=== PATIENT | male | born 1940 | race Caucasian/White ===

== ENCOUNTER 2016-12-14 | Outpatient (CLI) | payer MEDICARE, OTHER | END 2016-12-14 11:20 | disposition critical access hospital (66) | CPT/HCPCS: A0425; A0427 ==

== ENCOUNTER 2016-12-14 | Outpatient (CLI) | payer MEDICARE, OTHER | END 2016-12-14 23:59 | disposition short-term general hospital (02) | DX: I21.3 ST elevation (STEMI) myocardial infarction of unspecified site (principal) | CPT/HCPCS: A0425; A0426 ==

== ENCOUNTER 2016-12-14 11:36 | Emergency (ER) | payer MEDICARE, OTHER ==
[2016-12-14] MEDS ORDERED: ONDANSETRON 4 MG/2 ML VIAL ONE (11:41)
[2016-12-14] MEDS ORDERED: MORPHINE 2 MG/ML SYRINGE IVP STA (11:46)
[2016-12-14] MEDS ORDERED: ONDANSETRON 4 MG/2 ML VIAL IVP STA (11:46)
[2016-12-14] MEDS ORDERED: SODIUM CHLORIDE 0.9% 1,000 ML IV ONE (11:46)
[2016-12-14] MEDS ORDERED: MORPHINE 2 MG/ML SYRINGE ONE (12:05)
[2016-12-14] MEDS ORDERED: PROMETHAZINE 25 MG/1 ML VIAL ONE (12:39)
[2016-12-14] MEDS ORDERED: PROMETHAZINE INJ 25 MG in SODIUM CHLORIDE 0.9% 50 ML IV STA (12:41)
[2016-12-14] MEDS ORDERED: IOPAMIDOL-300 100 ML VIAL IVP ONE (12:43)
[2016-12-14] MEDS ORDERED: ASPIRIN CHEW 81 MG TABLET PO STA (12:46)
[2016-12-14] MEDS ORDERED: HEPARIN 25,000 UNITS/500 ML 500 ML IV STA (12:46)
[2016-12-14] MEDS ORDERED: HEPARIN 5,000 UNIT/ML VIAL IVP ONE (12:46)
[2016-12-14] MEDS ORDERED: HEPARIN 25,000 UNITS/500 ML 500 ML IV ONE (12:48)
[2016-12-14] MEDS ORDERED: HEPARIN 5,000 UNIT/ML VIAL ONE ×2 (12:48→12:49)
[2016-12-14] MEDS ORDERED: ASPIRIN CHEW 81 MG TABLET ONE (12:49)
== END 2016-12-14 12:55 | disposition short-term general hospital (02) ==
DX: I21.29 ST elevation (STEMI) myocardial infarction involving other sites (principal); R55 Syncope and collapse; I95.9 Hypotension, unspecified; R11.10 Vomiting, unspecified; R51 Headache; M54.2 Cervicalgia; V47.5XXA Car driver injured in collision with fixed or stationary object in traffic accident, initial encounter; I25.10 Atherosclerotic heart disease of native coronary artery without angina pectoris; E78.00 Pure hypercholesterolemia, unspecified; I48.91 Unspecified atrial fibrillation; Z79.01 Long term (current) use of anticoagulants; Z79.82 Long term (current) use of aspirin; F17.200 Nicotine dependence, unspecified, uncomplicated
CPT/HCPCS: 36415; 70450; 71275; 72125; 74174; 80053; 80320; 83605; 83690; 84484; 85025; 85610; 87040; 93005; 93010; 96365; 96375; 99284; A9270; Q9967

== ENCOUNTER 2016-12-23 08:00 | Outpatient (CLI) | payer MEDICARE, OTHER | END 2016-12-23 08:01 | disposition home or self-care (01) | DX: I48.91 Unspecified atrial fibrillation (principal) ==

== ENCOUNTER 2016-12-25 08:00 | Outpatient (CLI) | payer MEDICARE, OTHER | END 2016-12-25 08:01 | disposition home or self-care (01) | LOC: LAB.N 08:00 | PROVIDERS: ATTEND Family Medicine | DX: I48.91 Unspecified atrial fibrillation (principal) | CPT/HCPCS: 85610 ==

== ENCOUNTER 2016-12-26 08:00 | Outpatient (CLI) | payer MEDICARE, OTHER | END 2016-12-26 08:01 | disposition home or self-care (01) | DX: I48.91 Unspecified atrial fibrillation (principal) ==

== ENCOUNTER 2016-12-29 11:09 | Outpatient (CLI) | payer MEDICARE, OTHER | END 2016-12-29 11:10 | disposition home or self-care (01) | DX: I49.1 Atrial premature depolarization (principal); I48.91 Unspecified atrial fibrillation ==

== ENCOUNTER 2016-12-30 12:09 | Outpatient (CLI) | payer MEDICARE, OTHER | END 2016-12-30 12:10 | disposition home or self-care (01) | DX: I48.91 Unspecified atrial fibrillation (principal) ==

== ENCOUNTER 2017-01-02 | Outpatient (CLI) | payer MEDICARE, OTHER | END 2017-01-02 10:15 | disposition short-term general hospital (02) | CPT/HCPCS: A0425; A0427 ==

== ENCOUNTER 2017-01-05 09:32 | Outpatient (CLI) | payer MEDICARE, OTHER | END 2017-01-05 09:33 | disposition home or self-care (01) | DX: I48.91 Unspecified atrial fibrillation (principal) ==

== ENCOUNTER 2017-01-08 15:42 | Outpatient (CLI) | payer MEDICARE, OTHER | END 2017-01-08 15:43 | disposition home or self-care (01) | DX: I48.91 Unspecified atrial fibrillation (principal) ==

== ENCOUNTER 2017-01-28 13:25 | Outpatient (CLI) | payer MEDICARE, OTHER | END 2017-01-28 13:26 | DX: I48.91 Unspecified atrial fibrillation (principal) ==

== ENCOUNTER 2017-02-06 08:00 | Outpatient (CLI) | payer MEDICARE, OTHER | END 2017-02-06 23:59 | DX: I25.810 Atherosclerosis of coronary artery bypass graft(s) without angina pectoris (principal); Z95.1 Presence of aortocoronary bypass graft ==

== ENCOUNTER 2017-02-23 08:33 | Outpatient (CLI) | payer MEDICARE, OTHER | END 2017-02-23 08:34 | disposition home or self-care (01) | DX: I48.91 Unspecified atrial fibrillation (principal) ==

== ENCOUNTER 2017-03-02 08:39 | Outpatient (CLI) | payer MEDICARE, OTHER | END 2017-03-02 08:40 | disposition home or self-care (01) | DX: I48.91 Unspecified atrial fibrillation (principal) ==

== ENCOUNTER 2017-03-11 10:39 | Outpatient (CLI) | payer MEDICARE, OTHER | END 2017-03-11 10:40 | disposition home or self-care (01) | DX: I48.91 Unspecified atrial fibrillation (principal) ==

== ENCOUNTER 2017-03-20 09:37 | Emergency (ER) | payer MEDICARE, OTHER ==
--- NOTE | 2017-03-20 09:52 | ED Physician Documentation ---
History of Present Illness - Stated complaint Stated Complaint: LOW BP - Chief complaint Chief Complaint: Cardiac - Additonal information Additional information: hx from pt 76 male CAD s/p [place] CABG this year also a fib on coumadin and 40 some yr ago he had a vagal nerve clipping for abd pain and since then he has had a syndrome where his HR and BP drop after eating most recently seen by cardio for these sx a month ago and states nothing can be dine, PPM was not suggested today was at cardiac rehab - arrived feeling fine, was doing his exercises, became faint, HR 40 SBP approx 50 he is starting to feel better now also notes recent chest discomfort and soa X 3 days no fever or couch LLE swelling since vein harvesting for CABG Review of Systems Constitutional: denies: Fever, Chills Cardiac: reports: Chest pain / pressure Respiratory: reports: Dyspnea GI: denies: Abdominal Pain, Nausea, Vomiting Musculoskeletal: reports: Extremity swelling Neurologic: reports: Generalized weakness. denies: Focal weakness, Numbness Endocrine: reports: Easy bruising / bleeding Immunocompromised: denies: Immunocompromised PD PAST MEDICAL HISTORY - Past Medical History Cardiovascular: High cholesterol, Coronary artery disease, Atrial fibrillation Respiratory: None Neuro: None Endocrine/Autoimmune: None GI: GERD : None HEENT: Chronic vision loss, Glaucoma Psych: Anxiety Musculoskeletal: Osteoarthritis Derm: None - Past Surgical History General: Cholecystectomy, Hiatal hernia repair, Other Ortho: Knee replacement Cardiovascular: Coronary stent HEENT: Cataracts - Present Medications Home Medications: Ambulatory Orders Medication Instructions Recorded Confirmed Diphenoxylate HCl/Atropine 2.5 each PO 3-4XD 12/14/13 12/12/15 [Diphenoxylate-Atropine Tablet] Nitroglycerin [Nitrostat] 0.4 mg SL Q5MIN PRN 12/14/13 12/12/15 carBAMazepine [TEGretol] 200 mg PO BID 12/14/13 12/14/16 Albuterol Sulfate [Proventil Hfa] 60 puffs IH DAILY 11/21/15 12/12/15 Aspirin [Aspir-Low] 81 mg PO DAILY 11/21/15 12/14/16 Fluoxetine HCl [Prozac] 20 mg PO DAILY 11/21/15 12/12/15 Fluticasone [Flonase] 50 mcg INH DAILY 11/21/15 12/12/15 Hydrocodone/Acetaminophen [[place] 1 each PO DAILY PRN 11/21/15 12/14/16 5-325 Tablet] Lisinopril 20 mg PO DAILY 11/21/15 12/14/16 Omeprazole 40 mg PO DAILY 11/21/15 12/14/16 Tamsulosin HCl [Flomax] 0.4 mg PO DAILY 11/21/15 12/14/16 Warfarin [Coumadin] 5 mg PO 1400 12/11/15 12/14/16 Furosemide [Lasix] 40 mg PO DAILY #7 tablet 03/20/17 - Allergies Allergies/Adverse Reactions: Allergies Allergy/AdvReac Type Severity Reaction Status Date / Time proparacaine Allergy Intermediate Edema Verified 12/12/15 10:06 brimonidine tartrate * Allergy Unknown Unknown Verified 12/12/15 10:07 [From Alphagan P] - Social History Does the pt smoke?: No Smoking Status: Current every day smoker Does the pt drink ETOH?: No Does the pt have substance abuse?: No - POLST Patient has POLST: No PD ED PE NORMAL - Vitals Vital signs reviewed: Yes - Neck Neck: Supple, no meningeal sign - Cardiac Cardiac: RRR - Respiratory Respiratory: No respiratory distress, Other (basilar crackles) - Abdomen Abdomen: Soft, Non tender - Extremities Extremities: Other (mild edema LLE non tender) - Neuro Neuro: Alert and oriented X 3, No motor deficit Results - Vitals Vitals: Vital Signs - 24 hr 03/20/17 03/20/17 03/20/17 09:44 09:48 10:45 Temperature Heart Rate 52 L 53 L 53 L Respiratory 18 16 17 Rate Blood Pressure 90/48 L 111/53 L 127/59 L O2 Saturation 96 92 94 03/20/17 12:44 Temperature 36.8 C Heart Rate 66 Respiratory 18 Rate Blood Pressure 144/71 H O2 Saturation 97 Oxygen O2 Source Room air - EKG (time done) 0945 Rate: Rate (enter#) (42) Rhythm: Atrial fibrillation Intervals: No: Normal ME Ischemia: Normal ST segments - Labs Labs: Laboratory Tests 03/20/17 03/20/17 03/20/17 09:55 09:55 09:55 WBC 6.9 RBC 4.13 L Hgb 11.9 L Hct 35.2 L MCV 85.3 MCH 28.8 MCHC 33.8 RDW 15.5 H Plt Count 221 MPV 7.6 Neut # 4.3 Lymph # 1.8 [place] # 0.7 Eos # 0.1 Baso # 0.0 Absolute Nucleated RBC 0.00 Nucleated RBCs 0.0 PT INR Sodium 134 L Potassium 4.0 Chloride 102 Carbon Dioxide 24 Anion Gap 8.0 BUN 11 Creatinine 1.1 Estimated GFR (MDRD) 65 L Glucose 106 H Calcium 8.8 Troponin I < 0.04 B-Natriuretic Peptide 03/20/17 03/20/17 09:55 09:55 WBC RBC Hgb Hct MCV MCH MCHC RDW Plt Count MPV Neut # Lymph # [place] # Eos # Baso # Absolute Nucleated RBC Nucleated RBCs PT 16.4 H INR 1.5 H Sodium Potassium Chloride Carbon Dioxide Anion Gap BUN Creatinine Estimated GFR (MDRD) Glucose Calcium Troponin I B-Natriuretic Peptide 583 H - Rads (name of study) CXR Radiology: See rad report (cardiomegaly mild CHF) doppler Radiology: See rad report (no DVT) PD MEDICAL DECISION MAKING - ED course ED course: low LAURA and HR improved - per pt and long hx of same due to vagal nerve surgery, worked up many times and no tx is available a fib not new - on coumadin also CP and soa for few days EKG no acute and trop neg midl CHF on CXR and mild elev BNP, thinks this is baseline but not sure, not on lasix now though has been before offered transfer to [facility] where his cardio Dr Madison is for diuresis echo etc but they decline - he just had an echo last week and he has fup next week and not having CP or SOA now wants to be dced Departure - Departure Disposition: 01 Home, Self Care Clinical Impression: Bradycardia Congestive heart failure Qualifiers: Congestive heart failure type: systolic Congestive heart failure chronicity: unspecified congestive heart failure chronicity Qualified Code(s): I50.20 - Unspecified systolic (congestive) heart failure Condition: Good Instructions: ED CHF General Prescriptions: Furosemide [Lasix] 40 mg PO DAILY #7 tablet Comments: By your report the slow heart rate and low blood pressure are a recurrent problem after your vagus nerve ligation and cannot be cured. The heart rate and blood pressure are better now You have had some chest pressure and shortness of air for a few days too. The EKG and blood work do not suggest another heart attack But you do have some fluid in your lungs - some congestive heart failure - we are not sure if this is new. We discussed being transferred back over to [facility] to get diuretics and have more tests run on your heart. But you just had an echocardiogram last week and have another appointment next week and you want to go home. So I have written a prescription for a diuretic for you to take over the weekend. please follow up with your PMD for a recheck Thursday And see your supply chain vice president as scheduled Also your coumadin level was a little low at 1.5. Please get that rechecked Thursday as well
[2017-03-20 10:38] LABS: BASOPHILS % (AUTO) 0.6 %; EOSINOPHILS # (AUTO) 0.1 10^3/uL (0.0-0.7); EOSINOPHILS % (AUTO) 0.9 %; HCT - HEMATOCRIT 35.2 % (42.0-52.0); HGB - HEMOGLOBIN 11.9 g/dL (14.0-18.0); LYMPHOCYTES # (AUTO) 1.8 10^3/uL (1.5-3.5); LYMPHOCYTES % (AUTO) 26.1 %; MEAN CORPUSCULAR HEMOGLOBIN 28.8 pg (27.0-31.0); MEAN CORPUSCULAR HGB CONC 33.8 g/dL (32.0-36.0); MEAN CORPUSCULAR VOLUME 85.3 fL (80.0-94.0); MEAN PLATELET VOLUME 7.6 fL (7.4-11.4); MONOCYTES # (AUTO) 0.7 10^3/uL (0.0-1.0); MONOCYTES % (AUTO) 9.8 %; NEUTROPHILS # (AUTO) 4.3 10^3/uL (1.5-6.6); NEUTROPHILS % (AUTO) 62.6 %; RED BLOOD COUNT 4.13 10^6/uL (4.70-6.10); RED CELL DISTRIBUTION WIDTH 15.5 % (12.0-15.0); UNCORRECTED WHITE BLOOD COUNT 6.9 x10^3/uL; WHITE BLOOD COUNT 6.9 x10^3/uL (4.8-10.8)
--- NOTE | 2017-03-20 10:45 | XRAY Preliminary Report ---
Exam: XR Chest 1 View IMPRESSION: 1. Some interstitial edema, cardiomegaly, early congestive heart failure. [facility] SITE ID: [id number]
[2017-03-20 10:49] LABS: CALCIUM 8.8 mg/dL (8.5-10.3); CREATININE 1.1 mg/dL (0.6-1.2)
--- NOTE | 2017-03-20 10:51 | XRAY Report ---
EXAM: CHEST RADIOGRAPHY EXAM DATE: 03/20/2017 10:39 AM. CLINICAL HISTORY: Short of breath. COMPARISON: None. TECHNIQUE: 1 view. FINDINGS: Lungs/Pleura: Abnormal vascular redistribution and interstitial prominence. Mediastinum: Cardiomegaly. Previous CABG changes. Other: None. IMPRESSION: Some interstitial edema, cardiomegaly, early congestive heart failure. [facility] Referring Provider Line: [phone] SITE ID: [id number]
[2017-03-20 13:42] LABS: INR 1.5 (0.8-1.2); PT - PROTHROMBIN TIME 16.4 secs (9.9-12.6)
[2017-03-20] MEDS ORDERED: FUROSEMIDE 20 MG TABLET PO STA (13:47)
[2017-03-20] MEDS ORDERED: FUROSEMIDE 20 MG TABLET ONE (13:58)
[2017-03-20 14:06] VITALS: BP 111/72
--- NOTE | 2017-03-22 13:22 | Ultrasound Report ---
LEFT LEG VENOUS DUPLEX: 03/20/2017 CLINICAL INDICATION: Swelling, shortness of breath. TECHNIQUE: Real-time sonographic vascular imaging was performed by the supervisor airplane flight attendant through the left l ower extremity utilizing both color flow and Doppler spectral analysis. Multiple metals sales representative stati c images were saved for review. FINDINGS: A left lower extremity venous sonogram is performed revealing the common femoral, superfici al femoral, profunda femoris, and popliteal veins to be adequately visualized without intraluminal de fects. There is normal venous compression, augmentation, phasicity, and spontaneity of venous flow. In the calf, the visualized more cephalad portions of posterior tibial and peroneal veins are grossly compressible, without filling defects. IMPRESSION: NO EVIDENCE OF DEEP VENOUS THROMBOSIS. JOB #: [id number] EXT JOB #:[id number]
== END 2017-03-20 14:06 | disposition home or self-care (01) ==
LOC: ED 09:37
DX: R00.1 Bradycardia, unspecified (principal); I50.9 Heart failure, unspecified; I48.91 Unspecified atrial fibrillation; Z79.01 Long term (current) use of anticoagulants; E78.00 Pure hypercholesterolemia, unspecified; I25.10 Atherosclerotic heart disease of native coronary artery without angina pectoris; K21.9 Gastro-esophageal reflux disease without esophagitis; Z79.82 Long term (current) use of aspirin; F17.200 Nicotine dependence, unspecified, uncomplicated
CPT/HCPCS: 36415; 71010; 80048; 83880; 84484; 85025; 85610; 93005; 93010; 93971; 99283; 99284; A9270

== ENCOUNTER 2017-03-25 08:00 | Outpatient (CLI) | payer MEDICARE, OTHER | END 2017-03-25 08:01 | DX: I48.91 Unspecified atrial fibrillation (principal) ==

== ENCOUNTER 2017-05-15 10:46 | Outpatient (CLI) | payer MEDICARE, OTHER | END 2017-05-15 10:47 | disposition home or self-care (01) | LOC: LAB.N 10:46 | PROVIDERS: ATTEND Family Medicine | DX: I48.91 Unspecified atrial fibrillation (principal) | CPT/HCPCS: 85610 ==

== ENCOUNTER 2017-05-25 10:08 | Outpatient (CLI) | payer MEDICARE, OTHER | END 2017-05-25 10:09 | disposition home or self-care (01) | LOC: LAB 10:08 | PROVIDERS: ATTEND Family Medicine | DX: I48.91 Unspecified atrial fibrillation (principal) | CPT/HCPCS: 85610 ==

== ENCOUNTER 2017-06-16 10:59 | Outpatient (CLI) | payer MEDICARE, OTHER | END 2017-06-16 11:00 | disposition home or self-care (01) | LOC: LAB.N 10:59 | PROVIDERS: ATTEND Family Medicine | DX: I48.91 Unspecified atrial fibrillation (principal) | CPT/HCPCS: 85610 ==

== ENCOUNTER 2017-06-24 13:04 | Outpatient (CLI) | payer MEDICARE, OTHER | END 2017-06-24 13:05 | LOC: LAB.N 13:04 | PROVIDERS: ATTEND Family Medicine | DX: I48.91 Unspecified atrial fibrillation (principal) | CPT/HCPCS: 85610 ==

== ENCOUNTER 2017-07-14 20:23 | Outpatient (CLI) | payer MEDICARE, OTHER | END 2017-07-14 20:24 | disposition home or self-care (01) | LOC: LAB.N 20:23 | PROVIDERS: ATTEND Family Medicine | DX: I48.91 Unspecified atrial fibrillation (principal) | CPT/HCPCS: 85610 ==

== ENCOUNTER 2017-07-29 13:07 | Outpatient (CLI) | payer MEDICARE, OTHER | END 2017-07-29 13:08 | disposition home or self-care (01) | LOC: LAB.N 13:07 | PROVIDERS: ATTEND Family Medicine | DX: I48.91 Unspecified atrial fibrillation (principal) | CPT/HCPCS: 85610 ==

== ENCOUNTER 2017-08-07 06:44 | Outpatient (CLI) | payer MEDICARE, OTHER | END 2017-08-07 06:45 | disposition home or self-care (01) | LOC: LAB.N 06:44 | PROVIDERS: ATTEND Family Medicine | DX: I48.91 Unspecified atrial fibrillation (principal) | CPT/HCPCS: 85610 ==

== ENCOUNTER 2017-08-19 15:24 | Outpatient (CLI) | payer MEDICARE, OTHER | END 2017-08-19 15:25 | disposition home or self-care (01) | LOC: LAB.N 15:24 | PROVIDERS: ATTEND Family Medicine | DX: I48.91 Unspecified atrial fibrillation (principal) | CPT/HCPCS: 85610 ==

== ENCOUNTER 2017-09-25 21:19 | Outpatient (CLI) | payer MEDICARE, OTHER | END 2017-09-25 21:20 | disposition short-term general hospital (02) | LOC: EMS 21:19 | PROVIDERS: ATTEND Surgery | DX: R55 Syncope and collapse (principal) | CPT/HCPCS: A0425; A0427; A0888 ==

== ENCOUNTER 2017-11-26 23:59 | Outpatient (CLI) | payer MEDICARE, OTHER | END 2017-11-27 | disposition home or self-care (01) | LOC: LAB.N 23:59 | PROVIDERS: ATTEND Family Medicine | DX: I48.91 Unspecified atrial fibrillation (principal) | CPT/HCPCS: 85610 ==

== ENCOUNTER 2017-12-28 10:00 | Outpatient (CLI) | payer MEDICARE, OTHER ==
[2017-12-28 13:20] LABS: BUN - BLOOD UREA NITROGEN 13 mg/dL (6-20); CALCIUM 8.9 mg/dL (8.5-10.3); CARBON DIOXIDE - CO2 27 mmol/L (21-32); CHLORIDE 99 mmol/L (101-111); CHOL/HDL RATIO 2.6 (<5.0); CHOLESTEROL 216 mg/dL; GFR - MDRD 72 (>89); GLUCOSE 95 mg/dL (70-100); HDL CHOLESTEROL 82 mg/dL; LDL CHOLESTEROL,CALCULATED 119 mg/dL; LDL/HDL RATIO 1.5 (<3.6); SODIUM 134 mmol/L (135-145); VLDL CHOLESTEROL 15 mg/dL
== END 2017-12-28 10:01 | disposition home or self-care (01) ==
LOC: LAB.N 10:00
PROVIDERS: ATTEND Internal Medicine Interventional Cardiology
DX: I48.2 Chronic atrial fibrillation (principal); I25.810 Atherosclerosis of coronary artery bypass graft(s) without angina pectoris; Z95.1 Presence of aortocoronary bypass graft; I34.0 Nonrheumatic mitral (valve) insufficiency; Z87.891 Personal history of nicotine dependence; I10 Essential (primary) hypertension; E78.5 Hyperlipidemia, unspecified; K91.1 Postgastric surgery syndromes
CPT/HCPCS: 36415; 80048; 80061; 83721; 85610

== ENCOUNTER 2018-01-04 17:12 | Outpatient (CLI) | payer MEDICARE, OTHER ==
[2018-01-04 12:55] LABS: BASOPHILS % (AUTO) 0.5 %; EOSINOPHILS # (AUTO) 0.1 10^3/uL (0.0-0.7); EOSINOPHILS % (AUTO) 1.2 %; HGB - HEMOGLOBIN 11.2 g/dL (14.0-18.0); LYMPHOCYTES # (AUTO) 1.8 10^3/uL (1.5-3.5); LYMPHOCYTES % (AUTO) 25.6 %; MEAN CORPUSCULAR HEMOGLOBIN 25.5 pg (27.0-31.0); MEAN CORPUSCULAR HGB CONC 33.2 g/dL (32.0-36.0); MEAN CORPUSCULAR VOLUME 76.7 fL (80.0-94.0); MEAN PLATELET VOLUME 7.8 fL (7.4-11.4); MONOCYTES # (AUTO) 0.7 10^3/uL (0.0-1.0); MONOCYTES % (AUTO) 9.8 %; NEUTROPHILS # (AUTO) 4.3 10^3/uL (1.5-6.6); NEUTROPHILS % (AUTO) 62.9 %; PLT - PLATELET COUNT 258 10^3/uL (130-450); RED CELL DISTRIBUTION WIDTH 15.9 % (12.0-15.0); WHITE BLOOD COUNT 6.9 x10^3/uL (4.8-10.8)
[2018-01-04 13:13] LABS: CALCIUM 8.8 mg/dL (8.5-10.3); CREATININE 1.1 mg/dL (0.6-1.2)
== END 2018-01-04 17:13 | disposition home or self-care (01) ==
LOC: LAB.N 17:12
PROVIDERS: ATTEND Internal Medicine Interventional Cardiology
DX: I25.810 Atherosclerosis of coronary artery bypass graft(s) without angina pectoris (principal); R06.02 Shortness of breath; I48.2 Chronic atrial fibrillation; R53.83 Other fatigue
CPT/HCPCS: 36415; 80048; 83880; 84443; 85025

== ENCOUNTER 2018-03-29 08:00 | Outpatient (CLI) | payer MEDICARE, OTHER | END 2018-03-29 08:01 | disposition home or self-care (01) | LOC: LAB.N 08:00 | PROVIDERS: ATTEND Family Medicine | DX: I48.91 Unspecified atrial fibrillation (principal) | CPT/HCPCS: 85610 ==

== ENCOUNTER 2018-06-22 10:53 | Outpatient (CLI) | payer MEDICARE, OTHER | END 2018-06-22 10:54 | disposition home or self-care (01) | LOC: LAB.N 10:53 | PROVIDERS: ATTEND Family Medicine | DX: I48.91 Unspecified atrial fibrillation (principal) | CPT/HCPCS: 85610 ==

== ENCOUNTER 2018-11-02 08:00 | Outpatient (CLI) | payer MEDICARE, OTHER | END 2018-11-02 23:59 | disposition home or self-care (01) | LOC: LAB.N 08:00 | PROVIDERS: ATTEND Family Medicine | DX: I48.91 Unspecified atrial fibrillation (principal) | CPT/HCPCS: 85610 ==

== ENCOUNTER 2018-11-03 14:42 | Outpatient (CLI) | payer MEDICARE, OTHER | END 2018-11-03 23:59 | disposition home or self-care (01) | LOC: LAB.N 14:42 | PROVIDERS: ATTEND Family Medicine | DX: I48.91 Unspecified atrial fibrillation (principal) | CPT/HCPCS: 85610 ==

== ENCOUNTER 2018-11-08 12:16 | Outpatient (CLI) | payer MEDICARE, OTHER | END 2018-11-08 23:59 | disposition home or self-care (01) | LOC: LAB.N 12:16 | PROVIDERS: ATTEND Family Medicine | DX: I48.91 Unspecified atrial fibrillation (principal) | CPT/HCPCS: 85610 ==

== ENCOUNTER 2018-11-18 15:25 | Outpatient (CLI) | payer MEDICARE, OTHER | END 2018-11-18 23:59 | disposition home or self-care (01) | LOC: LAB.N 15:25 | PROVIDERS: ATTEND Family Medicine | DX: I48.91 Unspecified atrial fibrillation (principal) | CPT/HCPCS: 85610 ==

== ENCOUNTER 2018-11-23 08:00 | Outpatient (CLI) | payer MEDICARE, OTHER | END 2018-11-23 23:59 | disposition home or self-care (01) | LOC: LAB.N 08:00 | PROVIDERS: ATTEND Family Medicine | DX: I48.91 Unspecified atrial fibrillation (principal) | CPT/HCPCS: 85610 ==

== ENCOUNTER 2018-12-03 11:15 | Outpatient (CLI) | payer MEDICARE, OTHER | END 2018-12-03 23:59 | disposition home or self-care (01) | LOC: LAB.N 11:15 | PROVIDERS: ATTEND Family Medicine | DX: I48.91 Unspecified atrial fibrillation (principal) | CPT/HCPCS: 85610 ==

== ENCOUNTER 2018-12-08 23:59 | Outpatient (CLI) | payer MEDICARE, OTHER | END 2018-12-09 | disposition home or self-care (01) | LOC: LAB.N 23:59 | PROVIDERS: ATTEND Family Medicine | DX: I48.91 Unspecified atrial fibrillation (principal) | CPT/HCPCS: 85610 ==

== ENCOUNTER 2018-12-16 11:49 | Outpatient (CLI) | payer MEDICARE, OTHER | END 2018-12-16 23:59 | disposition home or self-care (01) | LOC: LAB.N 11:49 | PROVIDERS: ATTEND Family Medicine | DX: I48.91 Unspecified atrial fibrillation (principal) | CPT/HCPCS: 85610 ==

== ENCOUNTER 2019-01-04 15:10 | Outpatient (CLI) | payer MEDICARE, OTHER | END 2019-01-04 23:59 | disposition home or self-care (01) | LOC: LAB.N 15:10 | PROVIDERS: ATTEND Family Medicine | DX: I48.91 Unspecified atrial fibrillation (principal) | CPT/HCPCS: 85610 ==

== ENCOUNTER 2019-01-12 09:59 | Outpatient (CLI) | payer MEDICARE, OTHER ==
[2019-01-12 13:39] LABS: CALCIUM 8.8 mg/dL (8.5-10.3); CREATININE 1.1 mg/dL (0.6-1.2)
== END 2019-01-12 23:59 | disposition home or self-care (01) ==
LOC: LAB.N 09:59
PROVIDERS: ATTEND Family Medicine
DX: I48.2 Chronic atrial fibrillation (principal); I25.810 Atherosclerosis of coronary artery bypass graft(s) without angina pectoris
CPT/HCPCS: 36415; 80048; 85610

== ENCOUNTER 2019-01-19 08:00 | Outpatient (CLI) | payer MEDICARE, OTHER | END 2019-01-19 23:59 | disposition home or self-care (01) | LOC: LAB.N 08:00 | PROVIDERS: ATTEND Family Medicine | DX: I48.91 Unspecified atrial fibrillation (principal) | CPT/HCPCS: 85610 ==

== ENCOUNTER 2019-01-27 09:36 | Outpatient (CLI) | payer MEDICARE, OTHER | END 2019-01-27 23:59 | disposition home or self-care (01) | LOC: LAB.N 09:36 | PROVIDERS: ATTEND Family Medicine | DX: I48.91 Unspecified atrial fibrillation (principal) | CPT/HCPCS: 85610 ==

== ENCOUNTER 2019-01-28 09:05 | Outpatient (CLI) | payer MEDICARE, OTHER ==
[2019-01-28 12:55] LABS: BASOPHILS % (AUTO) 0.3 %; EOSINOPHILS # (AUTO) 0.1 10^3/uL (0.0-0.7); EOSINOPHILS % (AUTO) 0.7 %; LYMPHOCYTES # (AUTO) 1.3 10^3/uL (1.5-3.5); LYMPHOCYTES % (AUTO) 14.8 %; MEAN CORPUSCULAR HEMOGLOBIN 23.3 pg (27.0-31.0); MEAN CORPUSCULAR HGB CONC 31.7 g/dL (32.0-36.0); MEAN CORPUSCULAR VOLUME 73.4 fL (80.0-94.0); MEAN PLATELET VOLUME 7.8 fL (7.4-11.4); MONOCYTES # (AUTO) 0.6 10^3/uL (0.0-1.0); MONOCYTES % (AUTO) 7.4 %; NEUTROPHILS # (AUTO) 6.6 10^3/uL (1.5-6.6); NEUTROPHILS % (AUTO) 76.8 %; PLT - PLATELET COUNT 269 10^3/uL (130-450); RED BLOOD COUNT 4.29 10^6/uL (4.70-6.10); RED CELL DISTRIBUTION WIDTH 16.1 % (12.0-15.0); WHITE BLOOD COUNT 8.6 x10^3/uL (4.8-10.8)
[2019-01-28 13:35] LABS: ALBUMIN 3.9 g/dL (3.2-5.5); ALBUMIN/GLOBULIN RATIO 1.3 (1.0-2.2); ALKALINE PHOSPHATASE 93 IU/L (42-121); ALT ALANINE AMINOTRANSFERASE 35 IU/L (10-60); AST ASPARTATE AMINOTRANSFERASE 29 IU/L (10-42); BILIRUBIN,TOTAL 0.8 mg/dL (0.2-1.0); BUN - BLOOD UREA NITROGEN 11 mg/dL (6-20); CHOL/HDL RATIO 2.5 (<5.0); CHOLESTEROL 197 mg/dL; GFR - MDRD 72 (>89); HDL CHOLESTEROL 79 mg/dL; LDL CHOLESTEROL,CALCULATED 103 mg/dL; LDL/HDL RATIO 1.3 (<3.6); VLDL CHOLESTEROL 15 mg/dL
[2019-01-28 13:46] LABS: CARBON DIOXIDE - CO2 26 mmol/L (21-32); CHLORIDE 104 mmol/L (101-111); GLUCOSE 102 mg/dL (70-100); SODIUM 139 mmol/L (135-145)
== END 2019-01-28 09:06 | disposition home or self-care (01) ==
LOC: LAB.N 09:05
PROVIDERS: ATTEND Family Medicine
DX: E78.5 Hyperlipidemia, unspecified (principal); I10 Essential (primary) hypertension
CPT/HCPCS: 36415; 80053; 80061; 83721; 84443; 85025

== ENCOUNTER 2019-07-29 08:00 | Outpatient (CLI) | payer MEDICARE, OTHER ==
[2019-07-29 12:29] LABS: BASOPHILS % (AUTO) 0.3 %; EOSINOPHILS # (AUTO) 0.1 10^3/uL (0.0-0.7); EOSINOPHILS % (AUTO) 0.9 %; HGB - HEMOGLOBIN 9.3 g/dL (14.0-18.0); LYMPHOCYTES # (AUTO) 2.3 10^3/uL (1.5-3.5); LYMPHOCYTES % (AUTO) 39.9 %; MEAN CORPUSCULAR HGB CONC 28.7 g/dL (32.0-36.0); MEAN CORPUSCULAR VOLUME 76.8 fL (80.0-94.0); MEAN PLATELET VOLUME 9.4 fL (7.4-11.4); MONOCYTES # (AUTO) 0.6 10^3/uL (0.0-1.0); MONOCYTES % (AUTO) 10.9 %; NEUTROPHILS # (AUTO) 2.8 10^3/uL (1.5-6.6); NEUTROPHILS % (AUTO) 47.8 %; PLT - PLATELET COUNT 279 10^3/uL (130-450); RED BLOOD COUNT 4.22 10^6/uL (4.70-6.10); RED CELL DISTRIBUTION WIDTH 15.9 % (12.0-15.0); WHITE BLOOD COUNT 5.8 x10^3/uL (4.8-10.8)
[2019-07-29 12:40] LABS: ALBUMIN 3.9 g/dL (3.2-5.5); ALBUMIN/GLOBULIN RATIO 1.2 (1.0-2.2); BILIRUBIN,TOTAL 0.3 mg/dL (0.2-1.0); CALCIUM 9.1 mg/dL (8.5-10.3); TOTAL PROTEIN 7.2 g/dL (6.7-8.2)
[2019-07-29 13:06] LABS: PLATELET ESTIMATE, MANUAL NORMAL (130-450,000) (NORMAL); PLATELET MORPHOLOGY NORMAL APPEARANCE (NORMAL)
== END 2019-07-29 23:59 | disposition home or self-care (01) ==
LOC: LAB.N 08:00
PROVIDERS: ATTEND Family Medicine
DX: I48.91 Unspecified atrial fibrillation (principal); D64.9 Anemia, unspecified
CPT/HCPCS: 36415; 80053; 82728; 85025; 85610

== ENCOUNTER 2019-10-08 08:32 | Outpatient (CLI) | payer MEDICARE, OTHER ==
[2019-10-08 08:55] LABS: BASOPHILS % (AUTO) 0.4 %; EOSINOPHILS # (AUTO) 0.1 10^3/uL (0.0-0.7); EOSINOPHILS % (AUTO) 1.4 %; HGB - HEMOGLOBIN 11.4 g/dL (14.0-18.0); LYMPHOCYTES # (AUTO) 1.6 10^3/uL (1.5-3.5); LYMPHOCYTES % (AUTO) 28.9 %; MEAN CORPUSCULAR HEMOGLOBIN 24.8 pg (27.0-31.0); MEAN CORPUSCULAR HGB CONC 30.5 g/dL (32.0-36.0); MEAN CORPUSCULAR VOLUME 81.5 fL (80.0-94.0); MEAN PLATELET VOLUME 9.3 fL (7.4-11.4); MONOCYTES # (AUTO) 0.6 10^3/uL (0.0-1.0); MONOCYTES % (AUTO) 10.8 %; NEUTROPHILS # (AUTO) 3.3 10^3/uL (1.5-6.6); NEUTROPHILS % (AUTO) 58.3 %; PLT - PLATELET COUNT 234 10^3/uL (130-450); RED BLOOD COUNT 4.59 10^6/uL (4.70-6.10); RED CELL DISTRIBUTION WIDTH 19.9 % (12.0-15.0); WHITE BLOOD COUNT 5.6 x10^3/uL (4.8-10.8)
[2019-10-08 09:11] LABS: HB2 TOTAL 11.4 g/dL; HEMOGLOBIN A1C 0.5 g/dL; HEMOGLOBIN A1C % 6.2 % (4.6-6.2)
[2019-10-08 09:12] LABS: ALBUMIN 4.2 g/dL (3.2-5.5); ALBUMIN/GLOBULIN RATIO 1.3 (1.0-2.2); ALKALINE PHOSPHATASE 64 IU/L (42-121); ALT ALANINE AMINOTRANSFERASE 35 IU/L (10-60); AST ASPARTATE AMINOTRANSFERASE 29 IU/L (10-42); BILIRUBIN,TOTAL 0.6 mg/dL (0.2-1.0); BUN - BLOOD UREA NITROGEN 15 mg/dL (6-20); CARBON DIOXIDE - CO2 28 mmol/L (21-32); CHLORIDE 100 mmol/L (101-111); CHOL/HDL RATIO 2.5 (<5.0); CHOLESTEROL 211 mg/dL; CREATININE 1.1 mg/dL (0.6-1.2); GFR - MDRD 64 (>89); GLUCOSE 112 mg/dL (70-100); HDL CHOLESTEROL 83 mg/dL; LDL CHOLESTEROL,CALCULATED 115 mg/dL; LDL/HDL RATIO 1.4 (<3.6); SODIUM 137 mmol/L (135-145); TOTAL PROTEIN 7.4 g/dL (6.7-8.2); VLDL CHOLESTEROL 13 mg/dL
[2019-10-08 09:24] LABS: THYROID STIMULATING HORMONE 1.33 uIU/mL (0.34-5.60)
[2019-10-08 09:30] LABS: FERRITIN 17.3 ng/mL (23.9-336.2)
== END 2019-10-08 08:33 | disposition home or self-care (01) ==
LOC: LAB 08:32
PROVIDERS: ATTEND Family Medicine
DX: D64.9 Anemia, unspecified (principal); R73.9 Hyperglycemia, unspecified; I25.10 Atherosclerotic heart disease of native coronary artery without angina pectoris; E78.5 Hyperlipidemia, unspecified; I10 Essential (primary) hypertension
CPT/HCPCS: 36415; 80053; 80061; 82728; 83036; 83721; 84443; 85025

== ENCOUNTER 2019-11-28 08:00 | Outpatient (CLI) | payer MEDICARE, OTHER | END 2019-11-28 23:59 | disposition home or self-care (01) | LOC: LAB.N 08:00 | PROVIDERS: ATTEND Family Medicine | DX: I48.91 Unspecified atrial fibrillation (principal) | CPT/HCPCS: 85610 ==

== ENCOUNTER 2020-01-13 14:28 | Outpatient (CLI) | payer MEDICARE, OTHER | END 2020-01-13 23:59 | disposition home or self-care (01) | LOC: LAB.N 14:28 | PROVIDERS: ATTEND Family Medicine | DX: I48.91 Unspecified atrial fibrillation (principal) | CPT/HCPCS: 85610 ==

== ENCOUNTER 2020-07-03 18:45 | Outpatient (CLI) | payer MEDICARE, OTHER | END 2020-07-03 18:46 | disposition home or self-care (01) | LOC: COV 18:45 | PROVIDERS: ATTEND Family Medicine | DX: R19.7 Diarrhea, unspecified (principal); R09.81 Nasal congestion; Z20.828 Contact with and (suspected) exposure to other viral communicable diseases ==

== ENCOUNTER 2020-12-10 12:52 | Outpatient (CLI) | payer MEDICARE, OTHER | END 2020-12-10 23:59 | disposition short-term general hospital (02) | LOC: EMS 12:52 | PROVIDERS: ATTEND Surgery | DX: R55 Syncope and collapse (principal) | CPT/HCPCS: A0425; A0427 ==

== ENCOUNTER 2021-03-07 07:23 | Outpatient (CLI) | payer MEDICARE, OTHER ==
[2021-03-07 11:40] LABS: BASOPHILS % (AUTO) 0.4 %; EOSINOPHILS # (AUTO) 0.2 10^3/uL (0.0-0.7); EOSINOPHILS % (AUTO) 2.9 %; HCT - HEMATOCRIT 39.5 % (42.0-52.0); HGB - HEMOGLOBIN 12.7 g/dL (14.0-18.0); LYMPHOCYTES # (AUTO) 1.5 10^3/uL (1.5-3.5); LYMPHOCYTES % (AUTO) 28.4 %; MEAN CORPUSCULAR HEMOGLOBIN 28.9 pg (27.0-31.0); MEAN CORPUSCULAR HGB CONC 32.2 g/dL (32.0-36.0); MEAN CORPUSCULAR VOLUME 89.8 fL (80.0-94.0); MEAN PLATELET VOLUME 9.6 fL (7.4-11.4); MONOCYTES # (AUTO) 0.6 10^3/uL (0.0-1.0); MONOCYTES % (AUTO) 11.1 %; NEUTROPHILS # (AUTO) 2.9 10^3/uL (1.5-6.6); PLT - PLATELET COUNT 236 10^3/uL (130-450); RED CELL DISTRIBUTION WIDTH 14.1 % (12.0-15.0); WHITE BLOOD COUNT 5.1 x10^3/uL (4.8-10.8)
[2021-03-07 12:36] LABS: ALBUMIN 4.3 g/dL (3.2-5.5); ALBUMIN/GLOBULIN RATIO 1.5 (1.0-2.2); ALKALINE PHOSPHATASE 77 IU/L (42-121); ALT ALANINE AMINOTRANSFERASE 53 IU/L (10-60); AST ASPARTATE AMINOTRANSFERASE 44 IU/L (10-42); BILIRUBIN,TOTAL 0.6 mg/dL (0.2-1.0); BUN - BLOOD UREA NITROGEN 16 mg/dL (6-20); CALCIUM 9.3 mg/dL (8.5-10.3); CARBON DIOXIDE - CO2 28 mmol/L (21-32); CHLORIDE 96 mmol/L (101-111); CHOL/HDL RATIO 2.4 (<5.0); CHOLESTEROL 228 mg/dL; CREATININE 0.9 mg/dL (0.6-1.2); GFR - MDRD 81 (>89); GLUCOSE 101 mg/dL (70-100); HDL CHOLESTEROL 94 mg/dL; LDL CHOLESTEROL,CALCULATED 121 mg/dL; LDL/HDL RATIO 1.3 (<3.6); MAGNESIUM 2.2 mg/dL (1.7-2.8); POTASSIUM 3.8 mmol/L (3.5-5.0); SODIUM 136 mmol/L (135-145); TOTAL PROTEIN 7.2 g/dL (6.7-8.2); TRIGLYCERIDES 67 mg/dL; VLDL CHOLESTEROL 13 mg/dL
[2021-03-07 12:47] LABS: THYROID STIMULATING HORMONE 1.41 uIU/mL (0.34-5.60)
== END 2021-03-07 07:24 | disposition home or self-care (01) ==
LOC: LAB.N 07:23
PROVIDERS: ATTEND Family Medicine
DX: I11.0 Hypertensive heart disease with heart failure (principal); I50.20 Unspecified systolic (congestive) heart failure; M25.511 Pain in right shoulder; B35.3 Tinea pedis; I25.10 Atherosclerotic heart disease of native coronary artery without angina pectoris; E78.5 Hyperlipidemia, unspecified; I73.9 Peripheral vascular disease, unspecified; I48.91 Unspecified atrial fibrillation; Z79.01 Long term (current) use of anticoagulants
CPT/HCPCS: 36415; 80053; 80061; 83721; 83735; 83880; 84443; 85025; 85610

== ENCOUNTER 2021-09-26 07:53 | Outpatient (CLI) | payer MEDICARE, OTHER ==
[2021-09-26 13:01] LABS: BASOPHILS % (AUTO) 0.5 %; EOSINOPHILS # (AUTO) 0.1 10^3/uL (0.0-0.7); EOSINOPHILS % (AUTO) 1.6 %; HCT - HEMATOCRIT 38.2 % (42.0-52.0); HGB - HEMOGLOBIN 12.1 g/dL (14.0-18.0); LYMPHOCYTES # (AUTO) 1.6 10^3/uL (1.5-3.5); LYMPHOCYTES % (AUTO) 27.9 %; MEAN CORPUSCULAR HEMOGLOBIN 27.1 pg (27.0-31.0); MEAN CORPUSCULAR HGB CONC 31.7 g/dL (32.0-36.0); MEAN CORPUSCULAR VOLUME 85.7 fL (80.0-94.0); MEAN PLATELET VOLUME 9.9 fL (7.4-11.4); MONOCYTES # (AUTO) 0.5 10^3/uL (0.0-1.0); MONOCYTES % (AUTO) 8.9 %; NEUTROPHILS # (AUTO) 3.4 10^3/uL (1.5-6.6); NEUTROPHILS % (AUTO) 60.9 %; PLT - PLATELET COUNT 243 10^3/uL (130-450); RED BLOOD COUNT 4.46 10^6/uL (4.70-6.10); RED CELL DISTRIBUTION WIDTH 14.8 % (12.0-15.0); WHITE BLOOD COUNT 5.6 x10^3/uL (4.8-10.8)
[2021-09-26 13:02] LABS: ESTIMATED AVERAGE GLUCOSE 123 mg/dL (70-100); HEMOGLOBIN A1c% 5.9 % (4.27-6.07)
[2021-09-26 13:12] LABS: ALBUMIN 4.2 g/dL (3.2-5.5); ALBUMIN/GLOBULIN RATIO 1.4 (1.0-2.2); ALKALINE PHOSPHATASE 80 IU/L (42-121); ALT ALANINE AMINOTRANSFERASE 32 IU/L (10-60); AST ASPARTATE AMINOTRANSFERASE 32 IU/L (10-42); BILIRUBIN,TOTAL 0.5 mg/dL (0.2-1.0); BUN - BLOOD UREA NITROGEN 14 mg/dL (6-20); CALCIUM 9.4 mg/dL (8.5-10.3); CARBON DIOXIDE - CO2 28 mmol/L (21-32); CHLORIDE 95 mmol/L (101-111); CHOLESTEROL 237 mg/dL; CREATININE 0.9 mg/dL (0.6-1.2); GFR - MDRD 81 (>89); GLUCOSE 112 mg/dL (70-100); HDL CHOLESTEROL 78 mg/dL; LDL CHOLESTEROL,CALCULATED 142 mg/dL; LDL/HDL RATIO 1.8 (<3.6); POTASSIUM 4.3 mmol/L (3.5-5.0); SODIUM 133 mmol/L (135-145); TOTAL PROTEIN 7.2 g/dL (6.7-8.2); TRIGLYCERIDES 83 mg/dL; VLDL CHOLESTEROL 17 mg/dL
== END 2021-09-26 07:54 | disposition home or self-care (01) ==
LOC: DI.N 07:53
PROVIDERS: ATTEND Family Medicine
DX: E78.5 Hyperlipidemia, unspecified (principal); R73.9 Hyperglycemia, unspecified; I10 Essential (primary) hypertension
CPT/HCPCS: 36415; 80053; 80061; 83036; 83721; 84443; 85025

== ENCOUNTER 2022-02-03 10:56 | Outpatient (CLI) | payer MEDICARE, OTHER ==
[2022-02-03 17:37] LABS: BASOPHILS % (AUTO) 0.3 %; EOSINOPHILS # (AUTO) 0.1 10^3/uL (0.0-0.7); EOSINOPHILS % (AUTO) 2.3 %; HCT - HEMATOCRIT 38.9 % (42.0-52.0); HGB - HEMOGLOBIN 12.4 g/dL (14.0-18.0); LYMPHOCYTES # (AUTO) 1.7 10^3/uL (1.5-3.5); LYMPHOCYTES % (AUTO) 26.8 %; MEAN CORPUSCULAR HEMOGLOBIN 26.8 pg (27.0-31.0); MEAN CORPUSCULAR HGB CONC 31.9 g/dL (32.0-36.0); MEAN CORPUSCULAR VOLUME 84.2 fL (80.0-94.0); MEAN PLATELET VOLUME 9.4 fL (7.4-11.4); MONOCYTES # (AUTO) 0.6 10^3/uL (0.0-1.0); MONOCYTES % (AUTO) 10.3 %; NEUTROPHILS # (AUTO) 3.7 10^3/uL (1.5-6.6); PLT - PLATELET COUNT 314 10^3/uL (130-450); RED BLOOD COUNT 4.62 10^6/uL (4.70-6.10); RED CELL DISTRIBUTION WIDTH 15.1 % (12.0-15.0); WHITE BLOOD COUNT 6.2 x10^3/uL (4.8-10.8)
[2022-02-03 18:05] LABS: ALBUMIN 4.2 g/dL (3.2-5.5); ALBUMIN/GLOBULIN RATIO 1.3 (1.0-2.2); ALKALINE PHOSPHATASE 68 IU/L (42-121); ALT ALANINE AMINOTRANSFERASE 27 IU/L (10-60); AST ASPARTATE AMINOTRANSFERASE 30 IU/L (10-42); BILIRUBIN,TOTAL 0.7 mg/dL (0.2-1.0); BUN - BLOOD UREA NITROGEN 14 mg/dL (6-20); CALCIUM 9.3 mg/dL (8.5-10.3); CARBON DIOXIDE - CO2 28 mmol/L (21-32); CHLORIDE 92 mmol/L (101-111); CHOL/HDL RATIO 2.7 (<5.0); CHOLESTEROL 219 mg/dL; GFR - MDRD 72 (>89); GLUCOSE 109 mg/dL (70-100); HDL CHOLESTEROL 80 mg/dL; LDL CHOLESTEROL,CALCULATED 124 mg/dL; LDL/HDL RATIO 1.6 (<3.6); MAGNESIUM 2.2 mg/dL (1.7-2.8); POTASSIUM 3.8 mmol/L (3.5-5.0); SODIUM 130 mmol/L (135-145); TOTAL PROTEIN 7.4 g/dL (6.7-8.2); TRIGLYCERIDES 77 mg/dL; VLDL CHOLESTEROL 15 mg/dL
[2022-02-03 18:13] LABS: THYROID STIMULATING HORMONE 0.97 uIU/mL (0.34-5.60)
[2022-02-03 18:20] LABS: FERRITIN 17.8 ng/mL (23.9-336.2)
[2022-02-03 20:57] LABS: ESTIMATED AVERAGE GLUCOSE 126 mg/dL (70-100)
== END 2022-02-03 10:57 | disposition home or self-care (01) ==
LOC: LAB.N 10:56
PROVIDERS: ATTEND Family Medicine
DX: R07.89 Other chest pain (principal); S29.012A Strain of muscle and tendon of back wall of thorax, initial encounter; J44.9 Chronic obstructive pulmonary disease, unspecified; I11.0 Hypertensive heart disease with heart failure; I50.20 Unspecified systolic (congestive) heart failure; I48.91 Unspecified atrial fibrillation; Z79.01 Long term (current) use of anticoagulants; I73.9 Peripheral vascular disease, unspecified; I25.10 Atherosclerotic heart disease of native coronary artery without angina pectoris; E78.5 Hyperlipidemia, unspecified; G43.909 Migraine, unspecified, not intractable, without status migrainosus; M48.02 Spinal stenosis, cervical region; D64.9 Anemia, unspecified; R79.89 Other specified abnormal findings of blood chemistry
CPT/HCPCS: 36415; 80053; 80061; 82607; 82728; 83036; 83721; 83735; 84443; 85025

== ENCOUNTER 2023-08-18 22:20 | Outpatient (CLI) | payer MEDICARE, OTHER | END 2023-08-18 22:21 | disposition critical access hospital (66) | LOC: EMS 22:20 | DX: R40.20 Unspecified coma (principal); R51.9 Headache, unspecified; R53.1 Weakness; R11.12 Projectile vomiting | CPT/HCPCS: A0425; A0429 ==

== ENCOUNTER 2023-08-18 22:34 | Emergency (ER) | payer MEDICARE, OTHER ==
[2023-08-18 22:53] LABS: BASOPHILS % (AUTO) 0.1 %; EOSINOPHILS % (AUTO) 0.1 %; HGB - HEMOGLOBIN 10.8 g/dL (14.0-18.0); LYMPHOCYTES # (AUTO) 0.8 10^3/uL (1.5-3.5); LYMPHOCYTES % (AUTO) 4.4 %; MEAN CORPUSCULAR HEMOGLOBIN 28.2 pg (27.0-31.0); MEAN CORPUSCULAR HGB CONC 30.9 g/dL (32.0-36.0); MEAN CORPUSCULAR VOLUME 91.4 fL (80.0-94.0); MEAN PLATELET VOLUME 9.4 fL (7.4-11.4); MONOCYTES # (AUTO) 1.2 10^3/uL (0.0-1.0); MONOCYTES % (AUTO) 6.8 %; NEUTROPHILS # (AUTO) 14.8 10^3/uL (1.5-6.6); PLT - PLATELET COUNT 270 10^3/uL (130-450); RED BLOOD COUNT 3.83 10^6/uL (4.70-6.10); RED CELL DISTRIBUTION WIDTH 14.2 % (12.0-15.0); WHITE BLOOD COUNT 16.9 x10^3/uL (4.8-10.8)
[2023-08-18 23:01] LABS: PARTIAL THROMBOPLASTIN TIME 26.4 secs (24.9-33.3)
[2023-08-18] MEDS ORDERED: PROPOFOL 1000 MG/100 ML 1,000 MG/100 ML BOTTLE IV STA (23:01)
[2023-08-18] MEDS ORDERED: SUCCINYLCHOLINE 200 MG/10 ML VIAL IVP STA (23:03)
[2023-08-18] MEDS ORDERED: ETOMIDATE 40 MG/20 ML VIAL IVP STA (23:03)
--- NOTE | 2023-08-18 23:03 | ED Physician Documentation ---
History of Present Illness - Stated complaint Stated Complaint: ALOC - Chief complaint Chief Complaint: Critical Care - History obtained from History obtained from: Family, EMS - Additonal information Additional information: Patient is an 82-year-old male brought into the emergency department unresponsive today. He reportedly fell at home yesterday sustaining a right elbow fracture. He went to [facility] in [place]. He was placed in a right long-arm posterior splint. His states that he complained of a severe headache today, took oxycodone and went to bed. She figured that he was just sleeping but found him unresponsive for several hours, therefore she called 911 when she was unable to arouse him. The patient is not on blood thinners. She states that he struck the right side of his head when he fell yesterday at home. No loss of consciousness. Does not take any blood thinners. Patient is unable to give any history. Review of Systems Unable to obtain: Unresponsive PD PAST MEDICAL HISTORY - Past Medical History Cardiovascular: High cholesterol, Coronary artery disease, Atrial fibrillation Respiratory: None Endocrine/Autoimmune: None GI: GERD : None HEENT: Chronic vision loss, Glaucoma Psych: Anxiety Musculoskeletal: Osteoarthritis Derm: None - Past Surgical History Past Surgical History: Yes General: Cholecystectomy, Hiatal hernia repair, Other Ortho: Knee replacement Cardiovascular: Coronary stent HEENT: Cataracts - Present Medications Home Medications: Ambulatory Orders Medication Instructions Recorded Confirmed Diphenoxylate HCl/Atropine 2.5 each PO 3-4XD 12/14/13 12/12/15 [Diphenoxylate-Atropine Tablet] Nitroglycerin [Nitrostat] 0.4 mg SL Q5MIN PRN 12/14/13 12/12/15 carBAMazepine [TEGretol] 200 mg PO BID 12/14/13 12/14/16 Albuterol Sulfate [Proventil Hfa] 60 puffs IH DAILY 11/21/15 12/12/15 Aspirin [Aspir-Low] 81 mg PO DAILY 11/21/15 12/14/16 Fluoxetine HCl [Prozac] 20 mg PO DAILY 11/21/15 12/12/15 Fluticasone [Flonase] 50 mcg INH DAILY 11/21/15 12/12/15 Hydrocodone/Acetaminophen [[place] 1 each PO DAILY PRN 11/21/15 12/14/16 5-325 Tablet] Lisinopril 20 mg PO DAILY 11/21/15 12/14/16 Omeprazole 40 mg PO DAILY 11/21/15 12/14/16 Tamsulosin HCl [Flomax] 0.4 mg PO DAILY 11/21/15 12/14/16 Warfarin [Coumadin] 5 mg PO 1400 12/11/15 12/14/16 Furosemide [Lasix] 40 mg PO DAILY #7 tablet 03/20/17 - Allergies Allergies/Adverse Reactions: Allergies Allergy/AdvReac Type Severity Reaction Status Date / Time proparacaine Allergy Intermediate Edema Verified 08/18/23 22:49 brimonidine tartrate * Allergy Unknown Unknown Verified 08/18/23 22:49 [From Alphagan P] - Social History Does the pt smoke?: No Smoking Status: Current every day smoker Does the pt drink ETOH?: No Does the pt have substance abuse?: No - Immunizations Immunizations are current?: Yes - POLST Patient has POLST: No PD ED PE NORMAL - Vitals Vital signs reviewed: Yes - General General: Other (Unresponsive, sonorous respirations, NPA in place) - HEENT HEENT: Moist mucous membranes, Other (Right pupil is mildly enlarged compared to the left. Sluggish.) - Neck Neck: Supple, no meningeal sign - Cardiac Cardiac: Other (Tachycardic, irregular) - Respiratory Respiratory: Other (Wheezing bilaterally) - Abdomen Abdomen: Soft, Non tender, Non distended - Back Back: Other (No step-off or deformity) - Derm Derm: Warm and dry - Extremities Extremities: Other (Right upper extremity in a splint. Brisk cap refill) - Neuro Eye Opening: None Motor: None Verbal: None GCS Score: 3 Results - Vitals Vitals: Vital Signs - 24 hr 08/18/23 08/18/23 08/18/23 22:35 23:14 23:25 Temperature 36.4 C L 36.5 C Heart Rate 120 H 98 105 H Respiratory 30 H 24 16 Rate Blood Pressure 217/79 H 208/110 H 166/140 H O2 Saturation 91 L 99 99 08/18/23 08/18/23 08/18/23 23:29 23:30 23:48 Temperature 36.6 C 36.5 C Heart Rate 96 90 84 Respiratory 16 16 Rate Blood Pressure 177/133 H 144/75 H 103/73 O2 Saturation 99 98 100 08/18/23 08/19/23 23:57 00:16 Temperature 37 C Heart Rate 80 72 Respiratory 16 16 Rate Blood Pressure 110/73 107/71 O2 Saturation 100 100 Oxygen O2 Source Mechanical ventilator - Labs Labs: Laboratory Tests 08/18/23 08/18/23 08/18/23 22:36 22:40 22:40 WBC 16.9 H RBC 3.83 L Hgb 10.8 L Hct 35.0 L MCV 91.4 MCH 28.2 MCHC 30.9 L RDW 14.2 Plt Count 270 MPV 9.4 Neut # (Auto) 14.8 H Lymph # (Auto) 0.8 L [place] # (Auto) 1.2 H Eos # (Auto) 0.0 Baso # (Auto) 0.0 Absolute Nucleated RBC 0.00 Nucleated RBC % 0.0 PT 11.4 INR 1.1 APTT 26.4 Sodium Potassium Chloride Carbon Dioxide Anion Gap BUN Creatinine Estimated GFR (MDRD) Glucose POC Whole Bld Glucose 185 H Calcium Total Bilirubin AST ALT Alkaline Phosphatase Total Protein Albumin Globulin Albumin/Globulin Ratio Lipase 08/18/23 22:40 WBC RBC Hgb Hct MCV MCH MCHC RDW Plt Count MPV Neut # (Auto) Lymph # (Auto) [place] # (Auto) Eos # (Auto) Baso # (Auto) Absolute Nucleated RBC Nucleated RBC % PT INR APTT Sodium 133 L Potassium 4.2 Chloride 101 Carbon Dioxide 19 L Anion Gap 13.0 BUN 13 Creatinine 0.8 Estimated GFR (MDRD) 92 Glucose 187 H POC Whole Bld Glucose Calcium 9.1 Total Bilirubin 0.9 AST 19 ALT 21 Alkaline Phosphatase 114 Total Protein 7.1 Albumin 4.0 Globulin 3.1 Albumin/Globulin Ratio 1.3 Lipase 3 L - Rads (name of study) Head CT Relevant Findings:: Final report received, See rad report CT angiogram head and neck Relevant Findings:: Final report received, See rad report cxr s/p intubation Relevant Findings:: Final report received, See rad report cxr s/p central line Relevant Findings:: Final report received, See rad report Procedures - Intubation - Major Provider: Emergency physician Medications: Etomidate, Succinylcholine Blade: Glidescope Tube: Size-enter number (7.5), Cuffed, Marked at teeth-enter cm (24) Route: Oral Confirmation: Direct visualization, Bilateral breath sounds, End tidal CO2, Pulse ox, Chest xray Complications: No compications - Central Line - Major Central Line Preparation: Unable to obtain consent, Time out completed, Ultrasound used, Sterile prep and drape Central line location: Right IJ Central line type: Triple lumen Central line aftercare: Chlorhexidine disc placed, Secured, Placement confirmed, No pneumothorax, No complications, Bundle checklist complete, Pt tolerated well PD Medical Decision Making - ED course Complexity details: reviewed results, re-evaluated patient, considered differential, d/w family, d/w planning consultant ED course: The patient was found to have a large subdural hemorrhage with likely uncal herniation. This appears to be traumatic in nature, he was intubated. A central line was placed. Propofol started. A nicardipine drip started and mannitol started. Goal systolic blood pressure will be around 160-170 systolic. The patient's family states that he would be okay with craniotomy, surgery, intubation, but would not want CPR should his heart stop. Discussed the case with the [facility] emergency department, Dr. Everardo Alejo who graciously accepts in transfer. Patient sent via [employer]. COBRA forms completed. TECHNIQUE: Noncontrast 4.5 mm thick angled axial sections acquired from the foramen magnum to the vertex. For radiation dose reduction, the following was used: automated exposure control, adjustment of mA and/or kV according to patient size. COMPARISON: None. FINDINGS: Image quality: Motion degraded CSF spaces: 1.6 cm of leftward midline shift. There is sulcal effacement. Uncovertebral herniation. Volume: Sulcal effacement. Dilation of the left temporal horn Brain: Mixed density right convexity 2.5 cm hematoma. There is also suspected intraparenchymal hemorrhage. Right frontal region. There is also blood along the falx and tentorium. Craniofacial structures: Difficult to evaluate motion artifact. Life support tubing partially seen. IMPRESSION: Uncal herniation. Right subdural hematoma and intraparenchymal hemorrhage. Communicated to the [facility] ED immediately upon image receipt. Motion degraded CT. IMPRESSION: There is poor contrast opacification, likely a combination of contrast timing and cardiac output, as well as intracranial edema. There is also extensive motion artifact. Intracranial hemorrhage and uncal herniation described separately on head CT. Unable to assess details of intracranial and neck arteries. There is moderate diffuse lung disease and small pleural effusions. Other findings as above. IMPRESSION: Enteric tube terminates in the proximal stomach. ET tube terminates in mid trac hea. Moderate diffuse lung disease, likely infection or edema. Small left pleural effusion. Consider future imaging surveillance to assess for resolution. - Critical Care Time(min): 40 Time Includes: Direct patient care, Review records, Reassess patient, Document care, Coordinate care, Family consult for tx dec, See progress note Data interpretation: See progress note Procedures included in critical care time: See progress note Procedures excluded from critical care time: Central IV, Intubation, See progress note Departure - Departure Disposition: 02 Transfer Acute Care Hosp Clinical Impression: Midline shift of brain Subdural hemorrhage following injury Qualifiers: Encounter type: initial encounter Loss of consciousness presence/duration: with LOC of 6 hr - 24 hr Qualified Code(s): S06.5X4A - Traumatic subdural hemorrhage with loss of consciousness of 6 hours to 24 hours, initial encounter Condition: Critical Forms: PCP List
[2023-08-18 23:06] LABS: INR 1.1 (0.8-1.2); PT - PROTHROMBIN TIME 11.4 secs (9.9-12.6)
[2023-08-18 23:07] LABS: ALBUMIN/GLOBULIN RATIO 1.3 (1.0-2.2); BILIRUBIN,TOTAL 0.9 mg/dL (0.2-1.0); CALCIUM 9.1 mg/dL (8.5-10.3); CREATININE 0.8 mg/dL (0.6-1.3); POTASSIUM 4.2 mmol/L (3.5-4.5); TOTAL PROTEIN 7.1 g/dL (6.4-8.9)
[2023-08-18] MEDS ORDERED: ETOMIDATE 40 MG/20 ML VIAL IVP ONE (23:12)
[2023-08-18] MEDS ORDERED: NICARDIPINE HCL 25 MG in SODIUM CHLORIDE 0.9% 240 ML IV STA (23:15)
--- OUTSIDE RECORDS SUMMARY | 2023-08-18 23:15 | EXTERNAL MEDICAL SUMMARY RPT | Continuity of Care Document ---
Author Name Unknown Address [address] [place] [address] Phone Organization [facility] Address [address] [place] [address] Phone Care Team Providers Care Sr Risk Management Consultant Name Role Phone Shiela Smith Unavailable Unavailable Allergies and Intolerances date description facility reaction severity 2023-08-17 11:44:17 [facility] (no reactio n) Moderate 2023-08-17 11:44:17 [facility] (no reactio n) (no severity) 2023-08-17 11:44:17 [facility] (no reactio n) Severe 2023-08-17 11:44:17 [facility] (no reactio n) (no severity) Problems date description facility 2023-08-17 00:00 Fracture of elbow [facility] Procedures date description facility 2023-08-17 00:00 XR elbow right, 3+ views [facility] 2023-08-17 00:00 XR forearm right, 2 views [facility] 2023-08-17 00:00 X-ray of right humerus [facility] 2023-08-17 00:00 XR shoulder right, 2+ views [facility] 2023-08-17 00:00 X-ray rt ribs w/ PA chest [facility] Social History date description facility 2023-08-17 00:00 Ex-smoker (finding) [facility] Vital Signs date measurement value units 2023-08-17 00:00 BMI 25.8 kg/m2 2023-08-17 00:00 BP_diastolic 82 mmHg 2023-08-17 00:00 BP_systolic 170 mmHg 2023-08-17 00:00 heart_rate 74 /min 2023-08-17 00:00 height_metric 177.8 cm 2023-08-17 00:00 height_standard 70 in 2023-08-17 00:00 o2_saturation 96 % 2023-08-17 00:00 respiration_rate 20 /min 2023-08-17 00:00 temperature_metric 36.5 C 2023-08-17 00:00 temperature_standard 97.7 F 2023-08-17 00:00 weight_metric 81.64 kg 2023-08-17 00:00 weight_standard 179.99 lb
--- NOTE | 2023-08-18 23:19 | CT Report ---
PROCEDURE: HEAD WO INDICATIONS: ALOC, head injury, unresponsive TECHNIQUE: Noncontrast 4.5 mm thick angled axial sections acquired from the foramen magnum to the vertex. For r adiation dose reduction, the following was used: automated exposure control, adjustment of mA and/or kV according to patient size. COMPARISON: None. FINDINGS: Image quality: Motion degraded CSF spaces: 1.6 cm of leftward midline shift. There is sulcal effacement. Uncovertebral herniation. Volume: Sulcal effacement. Dilation of the left temporal horn Brain: Mixed density right convexity 2.5 cm hematoma. There is also suspected intraparenchymal hemorr estefanía. Right frontal region. There is also blood along the falx and tentorium. Craniofacial structures: Difficult to evaluate motion artifact. Life support tubing partially seen. IMPRESSION: Uncal herniation. Right subdural hematoma and intraparenchymal hemorrhage. Communicated to the [facility] ED immediately upon image receipt. Motion degraded CT. Reviewed by: Raza Francisco MD on 08/18/2023 11:18 PM PDT Approved by: Raza Francisco MD on 08/18/2023 11:18 PM PDT Station ID: [id number]
[2023-08-18] MEDS ORDERED: MANNITOL 20% 500 ML IV ONE (23:22)
[2023-08-18] MEDS ORDERED: NICARDIPINE HCL 25 MG/10 ML VIAL IV ONE (23:30)
--- NOTE | 2023-08-18 23:49 | XRAY Report ---
PROCEDURE: Chest for Line Placement INDICATIONS: post intubation TECHNIQUE: One view of the chest was acquired. COMPARISON: None. FINDINGS: Surgical changes and devices: Enteric tube terminates in proximal stomach. An ET tube terminates in mid trachea. Sternotomy wires. Left atrial device. Lungs and pleura: Moderate diffuse lung disease. Small left pleural effusion. Mediastinum: Borderline large heart. Bones and chest wall: Degenerative changes. IMPRESSION: Enteric tube terminates in the proximal stomach. ET tube terminates in mid trachea. Moderate diffuse lung disease, likely infection or edema. Small left pleural effusion. Consider futur e imaging surveillance to assess for resolution. Reviewed by: Raza Francisco MD on 08/18/2023 11:48 PM PDT Approved by: Raza Francisco MD on 08/18/2023 11:48 PM PDT Station ID: [id number]
[2023-08-18 23:54] VITALS: O2SAT 100
--- NOTE | 2023-08-18 23:55 | CT Report ---
PROCEDURE: CT Angio Head/Neck INDICATIONS: aloc TECHNIQUE: Arteriographic CT images of the head and neck were obtained with IV contrast. Multiplanar reformats were obtained, including maximum intensity projections. COMPARISON: Same-day head CT FINDINGS: Image quality: Significantly motion artifact. Poor contrast opacification. Head angiography Anterior circulation: ICAs: No high-grade obstruction. At least moderate calcifications are present In the cavernous segmen ts. ACAs: Deviated to the left MCAs: Not well seen. There is poor contrast opacification, likely due to edema in the right hemispher e. AComm: Not well seen Posterior circulation: Dominance: Posterior circulation not well seen Vertebral arteries: Not well seen in the intracranial aspect, possibly related to edema Basilar artery: Patent where visualized, but contrast opacification is poor. PComms: no aneurysm social media specialist: normal and symmetric Neck angiography Aortic arch and subclavian arteries: Not well opacified CCAs: Not well assessed due to poor opacification ICA origins (by NASCET criteria): At least moderate calcifications, but cannot be further assessed ICAs: Poorly opacified ECAs: Poorly opacified Vertebral arteries: Poorly opacified. Mild to moderate calcifications Soft tissues: Partially visualized nasal tube. A subsequent radiograph is available at this time. No pathologic lymph nodes by size criteria. Lung apices: Partially visualized moderate lung disease and small effusions. Bones: Degenerative changes. IMPRESSION: There is poor contrast opacification, likely a combination of contrast timing and cardiac output, as well as intracranial edema. There is also extensive motion artifact. Intracranial hemorrhage and unca l herniation described separately on head CT. Unable to assess details of intracranial and neck arter ies. There is moderate diffuse lung disease and small pleural effusions. Other findings as above. Reviewed by: Raza Francisco MD on 08/18/2023 11:54 PM PDT Approved by: Raza Francisco MD on 08/18/2023 11:54 PM PDT Station ID: [id number]
--- NOTE | 2023-08-19 00:17 | XRAY Report ---
PROCEDURE: Chest for Line Placement INDICATIONS: central line placed TECHNIQUE: One view of the chest was acquired. COMPARISON: Same-day radiograph FINDINGS: Surgical changes and devices: Right central line terminates in the mid SVC. The ET tube terminates i n the distal trachea. Enteric tube terminates below the diaphragm. Sternotomy wires and surgical clip s are present. Left atrial device. Lungs and pleura: Persistent moderate diffuse lung disease and small effusions. Mediastinum: Mild cardiomegaly Bones and chest wall: Degenerative changes. IMPRESSION: Right central line terminates in the mid SVC. ET tube is at the distal trachea, consider slight retra ction. Enteric tube is below the diaphragm. Moderate persistent lung disease and small pleural effusions. Reviewed by: Raza Francisco MD on 08/19/2023 12:15 AM PDT Approved by: Raza Francisco MD on 08/19/2023 12:15 AM PDT Station ID: [id number]
[2023-08-19 01:19] VITALS: BP 107/71
[2023-08-19] MEDS ORDERED: iohexoL-300 100 ML VIAL IVP ONE (03:05)
== END 2023-08-19 00:50 | disposition short-term general hospital (02) ==
LOC: EDUNIT# → ED 22:34
DX: S06.5X4A Traumatic subdural hemorrhage with loss of consciousness of 6 hours to 24 hours, initial encounter (principal); W19.XXXA Unspecified fall, initial encounter; R90.89 Other abnormal findings on diagnostic imaging of central nervous system; I48.91 Unspecified atrial fibrillation; F17.200 Nicotine dependence, unspecified, uncomplicated
CPT/HCPCS: 31500; 36415; 36556; 70450; 70496; 70498; 80053; 83690; 85025; 85610; 85730; 94002; 96374; 96375; 99291; J0330; Q9967; 82803; 94770